=== PATIENT | female | born 1975 | race Hispanic/Latino ===

== ENCOUNTER → 2018-10-13 | Outpatient (CLI) | payer BC ==
--- NOTE | 2018-10-13 10:51 | Diagnostic Imaging Report ---
EXAMINATION: Transvaginal ultrasound. CLINICAL INDICATION: Hematuria COMPARISON: None DISCUSSION: Transverse and sagittal transvaginal images were obtained of the pelvis with supplemental transabdominal images. Transvaginal imaging was medically necessary to evaluate the endometrium and adnexal structures. The uterus is anteflexed and normal in size measuring 8.5 x 4.5 x 5.3 cm. The endometrial stripe is homogeneous, normal in thickness and measures 0.4 centimeters. Large cervical Nabothian cyst incidentally noted. Echogenic Essure devices are noted along either side of the uterine fundus. The left ovary is normal in size and echogenicity measuring 2 x 1.4 x 2 cm, and contains a dominant follicle. The right ovary is not visualized due to overlying bowel gas. No free fluid or pelvic masses are seen. IMPRESSION: Unremarkable sonographic appearance of the uterus and left ovary. Nonvisualization of the right ovary due to technical factors. Signed by: Dr. Everette Acevedo M.D. on 10/13/2018 10:48 AM
== END ==
LOC: US 09:48
PROVIDERS: ATTEND Internal Medicine
DX: N91.2 Amenorrhea, unspecified (principal)
CPT/HCPCS: 76830; 76856

== ENCOUNTER → 2022-07-14 | Outpatient (CLI) | payer BC | LOC: MAMMO 08:46 | PROVIDERS: ATTEND Internal Medicine | DX: Z12.31 Encounter for screening mammogram for malignant neoplasm of breast (principal) | CPT/HCPCS: 77067 ==

== ENCOUNTER → 2023-08-15 | Outpatient (REF) | payer BC | LOC: MAMMO 10:17 | PROVIDERS: ATTEND Internal Medicine | DX: Z12.31 Encounter for screening mammogram for malignant neoplasm of breast (principal) | CPT/HCPCS: 77067 ==

== ENCOUNTER → 2024-08-28 | Outpatient (REF) | payer BC | LOC: MAMMO 10:15 | PROVIDERS: ATTEND Internal Medicine | DX: Z12.31 Encounter for screening mammogram for malignant neoplasm of breast (principal) | CPT/HCPCS: 77067 ==